=== PATIENT | male | born 1945 | race Caucasian/White ===

== ENCOUNTER 2017-09-07 13:38 | Inpatient (IN) | payer OTHER ==
[~2017-09-07] VITALS: Ht 185.4 cm; Wt 79.4 kg
--- NOTE | 2017-09-07 15:55 | NUR ---
Pre-admission Note: Client is seen in intake at this time. He verbalizes "I'm here to get off Hydrocodone." He is alert and oriented x 4. Denies S/I or H/I. No AV hallucinations noted. He is noted to have hyperverbal speech and rubbing his left knee. He is noted to be restless during the pre-admission process. He is able go provide consent and verbalize good understanding of the admission process. He reports NKA. Denies seizure history. He reports past medical hx of left TKR 5 weeks ago, C4-C6 surgery, L4-L5 fusion, BPH and depression. VS: BP 114/62, Temp 97.3, Pulse 85, RR 19, PL 7/10 to left knee. Will continue with the admission process when patient arrives in the unit.
[2017-09-07 16:01] VITALS: BP 114/62
[2017-09-07] MEDS ORDERED: ACETAMINOPHEN 325 MG TABLET PO PRN (16:45)
[2017-09-07] MEDS ORDERED: ONDANSETRON 4 MG/2 ML VIAL IM PRN (16:45)
[2017-09-07] MEDS ORDERED: PROMETHAZINE HCL 25 MG TABLET PO PRN (16:45)
[2017-09-07] MEDS ORDERED: diphenhydrAMINE 50 MG CAPSULE PO PRN (16:45)
[2017-09-07] MEDS ORDERED: ONDANSETRON HCL 4 MG TABLET PO PRN (16:45)
[2017-09-07] MEDS ORDERED: HYDROXYZINE PAMOATE 25 MG CAPSULE PO PRN (16:45)
[2017-09-07] MEDS ORDERED: MAG HYDROX/AL HYDROX/SIMETH 30 ML LIQUID UDC PO PRN (16:45)
[2017-09-07] MEDS ORDERED: MIRALAX 17 GM POWD.PACK PO PRN (16:45)
[2017-09-07] MEDS ORDERED: ONDANSETRON ODT 4 MG TAB.RAPDIS SL PRN (16:45)
[2017-09-07] MEDS ORDERED: MAGNESIUM HYDROXIDE 30 ML LIQUID UDC PO PRN (16:45)
[2017-09-07] MEDS ORDERED: BUPRENORPHINE HCL 2 MG TAB.SUBL SL PRN (16:45)
[2017-09-07] MEDS ORDERED: LOPERAMIDE HCL 2 MG CAPSULE PO PRN (16:45)
[2017-09-07] MEDS ORDERED: DICYCLOMINE HCL 20 MG TABLET PO PRN (16:45)
--- NOTE | 2017-09-07 16:45 | NUR ---
Admission Note: Admitted a 72 year old male for opiate withdrawal under the care of Dr. Dc Betts. He is alert and oriented x 4. Respirations even and unlabored. No SOB noted. Skin warm and moist to touch. Body search done by male CUTTING MACHINE TENDER. No contraband was found. Skin check done. No skin breakdown noted. Noted with scars to left knee and to his neck from surgery few years ago. Abdomen soft and non-distended. BS (+) in all 4 quadrants. No complains of N/V/D or constipation noted. Bladder non-distended. Voids independently. Ambulatory ad bailey with steady gait. He reports past medical hx of left knee TKR 5 weeks ago, BPH, Depression, C4-C6 surgery, L4 to S1 fusion. He denies having a PCP at this time. He denies having any seizure history. He states that his longest period of sobriety was 20 years ago back in 1996. He does not appear to be intoxicated at this time. COWS 16 upon admission. Substance Use: 1. Hydrocodone - Orally takes 4 tabs of "white oval tablets" daily x 5 weeks. Last use was on 09/05/2017 at 0400, 4 tabs. 2. Vyvanse - Orally takes 50 mg daily x 1 year. Last use was on 09/05/2017 at 0400. 3. Adderall - Orally takes 10 mg TID x 1 year. Last use was on 09/05/2017 at 0400 4. ETOH - sporadically drinks 3 beers on a non daily intermittent use. Last drink was 4 weeks ago. Treatment History: 1. [place] x [address] Betts made aware of patient's arrival in the unit and current medical condition. EKG/CXR ordered and completed. UDS to be provided. Patient was placed on room restriction until he is able to provide urine for UDS. Educated patient on the unit's policy and protocol. He verbalized good understanding. Will continue to monitor throughout the shift. Addendum: 09/07/17 at 1812 by DENVER BRIAN LVN Additional body check note: Left knee noted with swelling and warm to touch upon admission.
[2017-09-07] MEDS ORDERED: CARB1DRO25 OP (17:05)
[2017-09-07] MEDS ORDERED: PROP1INH NS (17:06)
[2017-09-07] MEDS ORDERED: LIFI1DRO OP (17:07)
[2017-09-07] MEDS ORDERED: NEO/3.5O EACHEYE (17:08)
[2017-09-07] MEDS ORDERED: DICL100G16 TP (17:10)
[2017-09-07] MEDS ORDERED: ANESTHETIC (17:14)
[2017-09-07] MEDS ORDERED: HYDR-3980 PO (17:16)
[2017-09-07] MEDS ORDERED: LISD50CA2 PO (17:20)
[2017-09-07] MEDS ORDERED: AMPH10CA3 PO (17:21)
[2017-09-07] MEDS: IBUPROFEN 600 MG TABLET PO PRN (17:28)
--- NOTE | 2017-09-07 17:28 | NUR ---
Motrin 600 mg PO given: Patient noted with complain of 7/10 left knee pain. Area noted to be swollen and warm to touch. Ice packs provided. Medicated patient with Motrin 600 mg PO as ordered. Will monitor for effectiveness.
[2017-09-07 17:35] LABS: BASOPHILS # (AUTO) 0.1 K/uL (0.0-8.0); BASOPHILS % (AUTO) 0.9 % (0.0-2.0); EOSINOPHILS # (AUTO) 0.2 K/uL (0.0-0.7); HEMATOCRIT 35.4 % (36.7-47.1); HEMOGLOBIN 11.5 g/dL (12.5-16.3); LYMPHOCYTES # (AUTO) 2.3 K/uL (20.0-40.0); LYMPHOCYTES % (AUTO) 29.5 % (20.5-51.5); MEAN CORPUSCULAR HEMOGLOBIN 26.9 uug (23.8-33.4); MEAN CORPUSCULAR HGB CONC 33 g/dL (32.5-36.3); MEAN CORPUSCULAR VOLUME 82.6 fL (73.0-96.2); MONOCYTES # (AUTO) 0.5 K/uL (2.0-10.0); MONOCYTES % (AUTO) 6.6 % (0.0-11.0); NEUTROPHILS # (AUTO) 4.7 K/uL (1.8-8.9); PLATELET COUNT (AUTO) 375 K/uL (152-348); RED BLOOD CELL COUNT(AUTO) 4.28 MIL/uL (4.06-5.63); WHITE BLOOD COUNT (AUTO) 7.8 K/uL (3.6-10.2)
[2017-09-07 17:37] LABS: ALANINE AMINOTRANSFERASE 26 U/L (16-63); ALKALINE PHOSPHATASE 95 U/L (50-136); ASPARTATE AMINOTRANSFERASE 17 U/L (15-37); BILIRUBIN,TOTAL 0.5 mg/dL (0.2-1.0); CARBON DIOXIDE 29 mmol/L (21-32); CHLORIDE 105 mmol/L (98-107); CREATININE 1.1 mg/dL (0.6-1.3); GLUCOSE 109 mg/dL (74-106); MAGNESIUM 2.1 mg/dL (1.8-2.4); POTASSIUM 3.9 mmol/L (3.5-5.1); TOTAL PROTEIN, SERUM 6.9 g/dL (6.4-8.2); UREA NITROGEN, BLOOD 21 mg/dL (7-18)
[2017-09-07 18:25] LABS: ETHANOL < 3 MG/DL (0-0)
--- NOTE | 2017-09-07 18:35 | NUR ---
Subutex 4 mg SL given: Patient was able to provide urine for UDS. COWS 16, presented with anxiety/agitation, restless legs, and muscle aches. Medicated patient with Subutex 4 mg SL as ordered. Will monitor for effectiveness.
[2017-09-07] MEDS ORDERED: TAMS-3 PO (18:42)
--- NOTE | 2017-09-07 18:45 | NUR ---
Communication: Labs Lab reviewed. Patient's NT-Pro-B Natriuret Pep is at 140H. Notified Dr. Betts.
--- NOTE | 2017-09-07 19:00 | NUR ---
End of Shift Notes: Patient is on PRN Subutex at this time to manage withdrawal symptoms related to opiates. VS monitored closely. No significant abnormalities noted. Withdrawal symptoms were closely monitored. Initial COWS 16, patient presented with restlessness, tremors, anxiety/agitation and muscle aches. Medicated patient with Subutex 4 mg SL as ordered at 1835. Results pending. Compliant with care and treatment. Consumed 100% of his dinner. All needs met and attended.
[2017-09-07 20:00] VITALS: BP 144/87
--- NOTE | 2017-09-07 20:00 | NUR ---
Start of Shift Pt awake on bed, AAOx4 and noted to be anxious and fidgety. Pt with racing thoughts and verbalized, "I'm just so anxious that I need to walk along the hallway to feel better." On PRN Subutex. Pt appears unkempt and with dark undereye circles. Left knee noted to have swelling r/t TKR on 07/10/2017, with pain=3/10. Per pt, he does not need pain meds at this time. COWS=10. Will continue to monitor.
[2017-09-07 20:30] LABS: *AMPHETAMINE, URINE POSITIVE (NEGATIVE); *BARBITURATE, URINE NEGATIVE (NEGATIVE); *CANNABINOID, URINE NEGATIVE (NEGATIVE); *COCCAINE, URINE NEGATIVE (NEGATIVE); *OPIATE, URINE NEGATIVE (NEGATIVE); *PHENCYCLIDINE SCREEN,URINE NEGATIVE (NEGATIVE)
[2017-09-07] MEDS ORDERED: TAMSULOSIN HCL 0.4 MG CAP.SR.24H PO ONE (21:15)
[2017-09-07] MEDS: CLONIDINE HCL 0.1 MG TABLET PO PRN (22:08)
--- NOTE | 2017-09-07 22:12 | NUR ---
RN note PRN Clonidine and Benadryl Pt c/o increasing anxiety and inability to sleep. Pt pacing inside the room. Administered Clonidine 0.1 mg PO PRN and Benadryl 50 mg PO PRN as ordered. Will reassess.
--- NOTE | 2017-09-07 23:15 | NUR ---
RN note reassess Pt asleep on bed, no SOB nor facial grimacing noted.
[2017-09-08] VITALS: BP 135/81
[2017-09-08 04:00] VITALS: BP 132/83
--- NOTE | 2017-09-08 07:22 | NUR ---
End of Shift Pt asleep on bed, arousable and noted to be anxious. Pt continues to have racing thoughts. On PRN Subutex. Pt appears unkempt and with dark undereye circles. Left knee noted to have swelling r/t TKR on 07/10/2017, with pain=3/10. Patient verbalized that he is looking forward to be seen by Physical Therapist today to check his left knee's mobility range. COWS=8, slept for 9 hours. Endorsed to AM shift nurse for continuity of care.
--- NOTE | 2017-09-08 07:31 | NUR ---
Start of Shift Notes: Received patient in his room. Alert and oriented x 4. Patient is a 72 year old male admitted for opiate withdrawal. Patient showered early AM. Denies AV hallucinations noted. No S/I or H/I noted. Educated patient on his current plan of care for the day and his medication regimen. Encouraged oral fluid intake and encouraged group participation to learn new skills to prevent relapse. Will continue to monitor.
[2017-09-08 08:00] VITALS: BP 116/63
--- NOTE | 2017-09-08 08:35 | NUR ---
Change of Condition: Patient yelled while inside the room "Help, I need a doctor!" Staff nurse, charge nurse immediately ran towards the patient's room. Patient was seen in a sitting position while spitting up saliva and food from his mouth. He was also pointing towards his throat. He was seen dry heaving and also stating "There is something wrong with me. I can't breathe!" VS were immediately taken. BP 164/112, Pulse 92, O2 sat 88%, RR 21. Patient denies any complains of chest pain. HOB elevated immediately. Placed patient on 15L of O2 via non-rebreather mask. Nurse notified MD and Rapid Response was called while staff nurse stayed with the patient. Patient remains alert and oriented x 4. Coherent. Speech is clear. No disorientation or confusion noted. Hand grasp strong bilaterally. No facial drooping noted. Facial features symmetrical.
--- NOTE | 2017-09-08 08:40 | NUR ---
Rapid Response: Rapid response arrived to the patient's room. At this time, patient remains alert and oriented x 4. Currently on 15L of O2 via non-rebreather mask. Patient was encouraged to remain calm as he appears anxious, restless and what appears to have a panic attack. Upon assessment of rapid response team, patient's VS were taken again. BP 135/97, Pulse 82, RR 18, O2 sat at 99% via non-rebreather mask. Lungs sounds clear bilaterally. No wheezing noted. RT titrated O2 to 5L via NC, while patient's O2 remained at 100%. Deep breathing exercises were provided. PMR encouraged. Reassurance was provided. Notified patient that he is in a safe place and that MD is well aware of his current condition. After deep breathing exercises, patient remained calm. COWS 9, however refused to take Subutex. Patient's VS remained stable. Patient was eventually titrated off O2 and is now saturating at 100% via RA. Encouraged patient to take Subutex but still refused. MD Betts made aware and orders were placed for STAT CXR, labs, and for patient to receive Ativan 2 mg PO x 1 now due to severe agitation. Orders were received by charge nurse and orders were placed.
[2017-09-08] MEDS ORDERED: LORAZEPAM 1 MG TABLET PO STA (08:52)
--- NOTE | 2017-09-08 08:59 | NUR ---
Ativan 2 mg PO x 1 given: Patient's O2 saturation at 99% via RA. Blood pressure 134/86, MD 82. Patient is restless, anxious/agitated, constantly moving his body position, dry heaving, and appears angry and upset. Ativan 2 mg PO x 1 given now for severe anxiety/agitation. Educated patient on the medication and its side effects. Will monitor for effectiveness. Patient continues to refuse Subutex 4 mg SL at this time.
[2017-09-08] MEDS ORDERED: TUBERCULIN,PURIF.PROT.DERIV. 5 TU/0.1 ML TEST ID ONE (09:00)
[2017-09-08] MEDS: MULTIVITAMINS,THERAPEUTIC TABLET PO SCH (09:00)
[2017-09-08] MEDS: DOCUSATE SODIUM 250 MG CAPSULE PO SCH (09:00)
--- NOTE | 2017-09-08 09:59 | NUR ---
COWS 9: Patient's COWS 9 at this time due to severe anxiety, elevated pulse and mild joint/bone aches. Notified MD Betts who is evaluating the patient at this time with orders to hold Subutex and DC Subutex orders. Will continue to monitor.
--- NOTE | 2017-09-08 09:59 | NUR ---
0900 meds not given/Re-assessment: Ativan 2 mg Patient appears calm at this time. Laying in bed with eyes closed. Requested to have O2 at bedside. Orders were received to have O2 PRN. Patient verbalized that he feels a little bit more better. Subutex 4 mg SL was encouraged again to keep him comfortable. But patient refuses to take the meds. Patient also refused all 0900 meds ie MVI, DSS 250, and TB test. Educated patient on the risk and benefits but patient still refused.
[2017-09-08 12:00] VITALS: BP 98/61
[2017-09-08 12:13] LABS: CARBON DIOXIDE 29 mmol/L (21-32); CHLORIDE 107 mmol/L (98-107); CREATININE 0.8 mg/dL (0.6-1.3); GLUCOSE 123 mg/dL (74-106); UREA NITROGEN, BLOOD 20 mg/dL (7-18)
[2017-09-08 12:14] LABS: BASOPHILS # (AUTO) 0.1 K/uL (0.0-8.0); BASOPHILS % (AUTO) 0.7 % (0.0-2.0); EOSINOPHILS # (AUTO) 0.1 K/uL (0.0-0.7); EOSINOPHILS % (AUTO) 1.5 % (0.0-7.0); HEMATOCRIT 33.2 % (36.7-47.1); HEMOGLOBIN 10.7 g/dL (12.5-16.3); LYMPHOCYTES # (AUTO) 1.3 K/uL (20.0-40.0); LYMPHOCYTES % (AUTO) 17.5 % (20.5-51.5); MEAN CORPUSCULAR HEMOGLOBIN 26.8 uug (23.8-33.4); MEAN CORPUSCULAR HGB CONC 32 g/dL (32.5-36.3); MEAN CORPUSCULAR VOLUME 83.1 fL (73.0-96.2); MONOCYTES # (AUTO) 0.4 K/uL (2.0-10.0); MONOCYTES % (AUTO) 4.8 % (0.0-11.0); NEUTROPHILS # (AUTO) 5.7 K/uL (1.8-8.9); NEUTROPHILS % (AUTO) 75.5 % (38.5-71.5); PLATELET COUNT (AUTO) 328 K/uL (152-348); WHITE BLOOD COUNT (AUTO) 7.6 K/uL (3.6-10.2)
[2017-09-08] MEDS ORDERED: LORAZEPAM 1 MG TABLET PO PRN (12:45)
--- NOTE | 2017-09-08 14:37 | NUR ---
Off Unit: Patient was accompanied by nurse to radiology department at this time in stable condition for 2view CXR.
--- NOTE | 2017-09-08 14:47 | NUR ---
Back to the Unit: Patient is back to unit in stable condition. 2View CXR done. Results pending.
--- NOTE | 2017-09-08 15:53 | NUR ---
Nursing Entry: Patient remains in stable condition at this time. He remains alert and oriented x 4. COWS 4. He is currently watching TV in his room. Ice packs provided to patient's left knee for pain relief with help.
[2017-09-08 16:00] VITALS: BP 118/71
[2017-09-08] MEDS: IBUPROFEN 600 MG TABLET PO PRN (17:52)
[2017-09-08] MEDS: METHOCARBAMOL 750 MG TABLET PO PRN (17:52)
--- NOTE | 2017-09-08 17:52 | NUR ---
Robaxin 750mg PO/Motrin 600 mg PO given: Patient noted with complain of 7/10 left knee pain. Ice packs applied with no help. Medicated patient with Robaxin 750 mg PO and Motrin 600 mg Po as ordered. Will monitor for effectiveness.
--- NOTE | 2017-09-08 18:52 | NUR ---
Re-assessment: Robaxin and Motrin Per patient, PRN Robaxin and Motrin was effective in reducing left knee pain. PL 08/18.
--- NOTE | 2017-09-08 18:58 | NUR ---
News orders: Bengay cream Patient requested Bengay cream for his left knee. Notified Dr. Betts. Orders obtained. Orders noted and carried out. MD is unable to enter orders at this time. was driving.
--- NOTE | 2017-09-08 19:20 | NUR ---
End of Shift Notes: Patient continues to be on PRNs at this time to manage withdrawal symptoms related to opiates. VS monitored closely. Rapid response was called in AM due to O2 desaturation. Patient is in stable condition at this time. Withdrawal symptoms were closely monitored. Initial COWS 9, due to elevated pulse, severe anxiety/agitation and muscle aches. Last COWS 4. Medicated patient with Motrin 600 mg PO and Robaxin 750 mg PO as ordered at 1752 with help after 1 hour. Subutex was discontinued per MD. Patient stayed in his room for most of the shift. All needs met and attended. Will continue to monitor closely.
--- NOTE | 2017-09-08 19:35 | NUR ---
START OF SHIFT Patient is a 72-year-old male admitted on 09/07/17 for opiate withdrawal, concurrent use of Vyvanse and adderall. Patient is currently not on any taper, with PRN medications available for symptoms of withdrawal; tolerating well. Last COWS was 4 per day nurse. Patient is 5 weeks post TKR of his left knee, complaining of mild to moderate intermittent pain. Upon assessment, patient appears anxious and worried, concerned about upcoming meds. Safety measures in place, side rails up x2, bed locked in low position, call light within reach. Will continue to monitor.
[2017-09-08 20:00] VITALS: BP 127/75
[2017-09-08] MEDS: CLONIDINE HCL 0.1 MG TABLET PO PRN (20:37)
--- NOTE | 2017-09-08 20:45 | NUR ---
PRN CLONIDINE AND TYLENOL Patient reports 4/10 pain at Left Knee despite previous PRN Robaxin and PRN Motrin. Patient was given Tylenol 650mg PO and PRN Clonidine 0.1mg for anxiety, agitation, restlessness and chills. Patient's respirations are even and unlabored, 16/min. Safety measures in place, side rails up x2, bed in lowest position, call light within reach. Will monitor for effectiveness.
--- NOTE | 2017-09-08 21:45 | NUR ---
PRN CLONIDINE AND TYLENOL REASSESSMENT Patient reports 2/10 left knee pain, and reports that he feels sleepy and will go to bed soon. PRN medications effective. Patient's respirations are even and unlabored. Safety measures in place, call light within reach. Will continue to monitor.
--- NOTE | 2017-09-09 | NUR ---
VITALS REFUSED Patient refused to be woken up for midnight vitals. Respirations even and unlabored, 16/min. Safety measures in place, side rails up x2, bed locked in lowest position, call light within reach. Will continue to monitor.
--- NOTE | 2017-09-09 | NUR ---
COWS DEFERRED COWS deferred due to patient sleeping; to be assessed and scored while patient is awake. Respirations even and unlabored, 16/min. Safety measures in place, call light within reach. Will continue to monitor.
--- NOTE | 2017-09-09 04:00 | NUR ---
VITALS REFUSED, COWS DEFERRED Patient refused 4AM vitals, COWS deferred due to patient sleeping; to be assessed while patient is awake. Respirations 16/min, even and unlabored. Safety measures in place, side rails up x2, bed locked in lowest position, call light within reach. Will continue to monitor.
--- NOTE | 2017-09-09 07:10 | NUR ---
END OF SHIFT Patient is a 72-year-old male admitted on 09/07/17 for opiate withdrawal, concurrent use of Vyvanse and adderall. No taper has been ordered for patient, only PRN medications are available for symptoms of withdrawal; patient is tolerating current med regimen well. Last COWS score was 4. Patient received PRN Clonidine and Tylenol, both effective. Patient slept for 9 hours, total intake was 547 mL, void x2, stool x0. Safety measures in place, side rails up x2, bed locked in low position, call light within reach. Will endorse to day shift.
--- NOTE | 2017-09-09 08:02 | NUR ---
START OF SHIFT NOTE Received report from night nurse, patient admitted for hydrocodone/Vyvanse/Adderall withdrawal. Patient currently not on any taper but PRN'S available for increased s/s of withdrawal. Per endorsement pt was given PRN Clonidine/Tylenol noted to be effective, last COWS-4, slept for 9 hours. Received patient in his room c/o of diarrhea. Patient noted with flat effect, anxious, agitated, Breathing normal no SOB noted. skin intact warm and dry to touch. Safety measures in place. Will cont with plan of care.
[2017-09-09 08:05] VITALS: BP 113/79
[2017-09-09] MEDS: MULTIVITAMINS,THERAPEUTIC TABLET PO SCH (08:27)
[2017-09-09] MEDS: DOCUSATE SODIUM 250 MG CAPSULE PO SCH (08:28)
--- NOTE | 2017-09-09 08:35 | NUR ---
PRN IMODIUM/VISTARIL Patient reported diarrhea x1, anxiety, agitation. PRN Imodium 4mg PO,Vistaril 25mg PO given as ordered. Will cont to monitor and reassess.
--- NOTE | 2017-09-09 09:35 | NUR ---
VISTARIL/IMODIUM REASSESSMENT Per patient medications were effective no episode of diarrhea and anxiety and agitation subsided.
[2017-09-09 11:06] LABS: HEPATITIS B SURFACE AG Negative (Negative)
[2017-09-09 12:00] VITALS: BP 136/82
[2017-09-09] MEDS ORDERED: PATIENT MAY USE OWN MED- MD OK TOP PRN (12:30)
[2017-09-09] MEDS ORDERED: PATIENT MAY USE OWN MED- MD OK NS PRN (12:30)
[2017-09-09 16:00] VITALS: BP 139/88
[2017-09-09] MEDS: FLUTICASONE PROP NASAL SPRAY 16 GM BOTTLE NS SCH (16:15)
[2017-09-09] MEDS: PATIENT MAY USE OWN MED- MD OK TOP SCH (16:22)
[2017-09-09] MEDS: METHOCARBAMOL 750 MG TABLET PO PRN (17:10)
--- NOTE | 2017-09-09 17:10 | NUR ---
PRN ROBAXIN Patient c/o of muscle spasms. PRN Robaxin 750mg PO given as ordered. Will cont to monitor and reassess.
--- NOTE | 2017-09-09 18:10 | NUR ---
ROBAXIN REASSESSMENT Per patient Robaxin was effective muscle spasms decreased.
--- NOTE | 2017-09-09 19:05 | NUR ---
Start of Shift Patient Received. Patient is in his room sleeping but easily aroused to verbal stimuli. Breathing even and non labored. Patient was placed on PRN medications for increased signs and symptoms of withdrawal. He received PRN Imodium for episodes of loose stool, PRN Vistaril for increased anxiety, and PRN Robaxin for increased muscle spasms with medications noted to be effective. Patient is set for discharge tomorrow 09/10/17. Last noted COWS 7. All needs attended to promptly. Will continue plan of care as ordered.
--- NOTE | 2017-09-09 19:07 | NUR ---
END OF SHIFT NOTE Patient presented with anxiety, agitation, diarrhea, muscle spasms. Patient was given PRN Imodium, Vistaril, Robaxin noted to be effective. patient was seen and evaluated by PT. Patient was seen by MD with new to discharge in am. Vital signs WNL. Patient mostly rested in his room. Patient able to consumed 100% of his meals. Patient remained compliant with plan of care. Safety measures in place. Patient endorsed to night nurse in stable condition.
[2017-09-09 20:27] VITALS: BP 135/85
[2017-09-09] MEDS: TAMSULOSIN HCL 0.4 MG CAP.SR.24H PO SCH (20:29)
[2017-09-09] MEDS: CLONIDINE HCL 0.1 MG TABLET PO PRN (20:29)
--- NOTE | 2017-09-09 20:30 | NUR ---
PRN Medication Administration Patient is noted verbalizing increased anxiety, noted with increased restlessness, and easily irritable. PRN Clonidine administered with routine medication. Will continue to monitor.
--- NOTE | 2017-09-09 21:30 | NUR ---
PRN Medication Reassessment Patient is noted in bed sleeping. Breathing even and non labored. No signs of restlessness or discomfort noted. Patient received PRN Clonidine with medication noted to be effective. Will continue to monitor.
[2017-09-10 00:22] VITALS: BP 123/77
[2017-09-10 04:08] VITALS: BP 125/79
[2017-09-10] MEDS: LOPERAMIDE HCL 2 MG CAPSULE PO PRN ×2 (06:20→09:28)
--- NOTE | 2017-09-10 06:20 | NUR ---
PRN Medication Administration Patient is noted awake and is noted with episode of loose stool. PRN Imodium 2mg administered. Will continue to monitor.
--- NOTE | 2017-09-10 07:19 | NUR ---
End of Shift Patient is noted awake, alert and verbally responsive. Breathing even and non labored. Patient is set for discharge today 09/10/17. Patient received PRN Clonidine for increased signs and symptoms of anxiety and agitation with medication noted to be effective. Patient also received PRN Imodium for episode of loose stool with medication noted to be effective. Will endorse to continue to monitor for loose bowl. Last noted COWS 7. All needs attended to promptly. Will endorse to continue plan of care as ordered.
[2017-09-10 08:00] VITALS: BP 136/82
--- NOTE | 2017-09-10 08:20 | NUR ---
START OF SHIFT: RECEIVED PT A/O X 4. HE PRESENTS WITH GUARDED AFFECT. HE IS CLEAN AND WELL KEMPT. HE IS FIDGETY AND APPEARS AGITATED. HE REPORTS HAVING DIARRHEA AND BACK AND KNEE PAIN 4/10 ON SCALE. COWS 6. PRNS AVAILABLE FOR INCREASED S/S OF W/D. PRN IMODIUM ADMINISTERED TO RELIEVE DIARRHEA. HOT PACK AND COLD PACK GIVEN FOR KNEE AND BACK PAIN.COWS 7 NO SUBUTEX ADMINISTERED. PT IS SCHEDULED FOR DISCHARGE THIS AFTERNOON. WILL CONTINUE TO MONITOR AND PROVIDE SAFE AND SUPPORTIVE ENVIRONMENT.
[2017-09-10] MEDS: DOCUSATE SODIUM 250 MG CAPSULE PO SCH (09:00)
[2017-09-10] MEDS: MULTIVITAMINS,THERAPEUTIC TABLET PO SCH (09:28)
[2017-09-10] MEDS: FLUTICASONE PROP NASAL SPRAY 16 GM BOTTLE NS SCH ×2 (09:28→17:00)
[2017-09-10] MEDS: METHYL SALICYLATE/MENTHOL CREAM 28 GM TUBE TOP PRN (09:30)
[2017-09-10] MEDS: PATIENT MAY USE OWN MED- MD OK EACHEYE SCH ×3 (09:35→09:36)
[2017-09-10] MEDS: PATIENT MAY USE OWN MED- MD OK TOP SCH ×2 (09:36→17:00)
--- NOTE | 2017-09-10 10:00 | NUR ---
Therapist prompted client about group times. Client reports he will not be attending groups today due to knee pain.
--- NOTE | 2017-09-10 11:00 | NUR ---
discharge postponed until 09/11/17 per md.
[2017-09-10 12:00] VITALS: BP 136/79
[2017-09-10 16:00] VITALS: BP 123/64
[2017-09-10] MEDS: METHOCARBAMOL 750 MG TABLET PO PRN (18:31)
[2017-09-10] MEDS: IBUPROFEN 600 MG TABLET PO PRN (18:31)
--- NOTE | 2017-09-10 19:00 | NUR ---
Start of Shift Patient Received. Patient is noted in bed sleeping but easily aroused to verbal stimuli. Breathing even and non labored. Per endorsement, patients discharge is now pending. Patient was medicated for episodes of loose stool and was given PRN Imodium with medication noted to be effective. Current orders for stool collection to R/A C-Diff. Patient also received PRN Robaxin and Motrin for increased body aches with medications noted to be effective. Discharge is currently pending for 09/11/17. Last noted COWS 9. All needs attended to promptly. Will continue plan of care as ordered.
--- NOTE | 2017-09-10 19:33 | NUR ---
END OF SHIFT: PT STAYED IN BED AND ISOLATED IN ROOM MOST OF SHIFT. HE WAS GIVEN MOTRIN AND ROBAXIN FOR R KNEE PAIN AND LOWER BACK PAIN 4/10 ON PAIN SCALE WHICH WAS MILDLY EFFECTIVE. LAST COWS 9. HIS AFFECT IS GUARDED HIS MOOD DEPRESSED. HE DENIES S/I AND H/I. DISCHARGE PLANNING IN PROGRESS FOR 09/11/17. WILL PASS REPORT TO ONCOMING NIGHT NURSE.
[2017-09-10 20:18] VITALS: BP 107/72
[2017-09-10] MEDS: TAMSULOSIN HCL 0.4 MG CAP.SR.24H PO SCH (20:21)
[2017-09-11 00:20] VITALS: BP 103/63
[2017-09-11] MEDS ORDERED: METH-406 PO (00:51)
[2017-09-11 04:08] VITALS: BP 127/86
--- NOTE | 2017-09-11 07:20 | NUR ---
End of Shift Patient is noted awake and alert x3. Breathing even and non labored. Patients discharge is now pending. Patient is noted to be flat, blunt, and isolative to room. No episodes of loose bowl noted. Patient noted to sleep in intervals with no PRN Medications administered. Lat noted COWS 8. All needs attended to promptly. Will endorse to continue plan of care as ordered.
--- NOTE | 2017-09-11 07:25 | NUR ---
Start of Shift Quality Control Assessor received report on 72 year old male admitted to [facility] on 09/07/17 for medically supervised withdrawal from Hydrocodone, Vyvanse and Adderall. Pt endorses NKA, full code and regular diet. PMH to include depression, BPH, left knee surgery 5 weeks prior to admission and a C4-C6 surgery. Pt slept well for 8 hours last evening. Last COWS 8, recorded at 2000 per NOC report. Pts discharge pending, possibly for today. Quality Control Assessor encounters pt in his room resting with eyes closed. Rise and fall of chest noted, with even and unlabored respirations. Bed in low position with wheels locked and side rails up x2. Will continue to monitor, support and encourage according to plan of care.
[2017-09-11 08:45] VITALS: BP 127/70
[2017-09-11] MEDS: DOCUSATE SODIUM 250 MG CAPSULE PO SCH ×2 (09:59→10:09)
[2017-09-11] MEDS: MULTIVITAMINS,THERAPEUTIC TABLET PO SCH (10:09)
[2017-09-11] MEDS: FLUTICASONE PROP NASAL SPRAY 16 GM BOTTLE NS SCH (10:39)
[2017-09-11] MEDS: PATIENT MAY USE OWN MED- MD OK EACHEYE SCH ×3 (10:39→10:40)
[2017-09-11] MEDS: METHYL SALICYLATE/MENTHOL CREAM 28 GM TUBE TOP PRN (10:42)
[2017-09-11] MEDS: PATIENT MAY USE OWN MED- MD OK TOP SCH (10:43)
--- NOTE | 2017-09-11 12:43 | NUR ---
Discharge Pt refused all education and was pre-occupied with discharge diagnosis. Pt was irritable, demanding, argumentative and abrasive. Pt had many complaints and was anxious to discharge. Pt was provided with all discharge belongings including personal effects and home medication. Pt denies HI/SI or A/VH or any other associated psychiatric symptoms. Pt exited the unit per ambulation to a private car for discharge to a RTC.
== END 2017-09-11 12:43 | DRG 895 ==
LOC: SRC 15:20
PROVIDERS: ADMIT Internal Medicine; ATTEND Internal Medicine
PROC: HZ2ZZZZ Detoxification Services for Substance Abuse Treatment (ICD-10-PCS; principal; 2017-09-07)
PROC: HZ41ZZZ Group Counseling for Substance Abuse Treatment, Behavioral (ICD-10-PCS; 2017-09-08)
PROC: HZ31ZZZ Individual Counseling for Substance Abuse Treatment, Behavioral (ICD-10-PCS; 2017-09-10)
DX: F11.23 Opioid dependence with withdrawal (principal); R06.09 Other forms of dyspnea; F32.9 Major depressive disorder, single episode, unspecified; F41.9 Anxiety disorder, unspecified; F15.23 Other stimulant dependence with withdrawal; F98.8 Other specified behavioral and emotional disorders with onset usually occurring in childhood and adolescence; Z96.652 Presence of left artificial knee joint; Z98.1 Arthrodesis status; M50.30 Other cervical disc degeneration, unspecified cervical region; M51.36 Other intervertebral disc degeneration, lumbar region; M17.0 Bilateral primary osteoarthritis of knee; Z81.1 Family history of alcohol abuse and dependence; R91.1 Solitary pulmonary nodule
CPT/HCPCS: 36415; 70030-TC; 71045; 71046; 80307; 80324; 83735; 85025; 86580; 86592; 86705; 86803; 87340; 87806; 93005; 93307; 97110; 97116; 97530; A4663; G0480; J3535; Q0162; Q0163

== ENCOUNTER 2017-09-08 14:00 | Outpatient (CLI) | payer SELFPAY ==
[~2017-09-08 14:00] MED LIST: AMPH10CA3 PO; ANESTHETIC; CARB1DRO25 OP; DICL100G16 TP; HYDR-3980 PO; LIFI1DRO OP; LISD50CA2 PO; NEO/3.5O EACHEYE; PROP1INH NS; TAMS-3 PO
== END 2017-09-08 23:59 | disposition home or self-care (01) ==
LOC: XRAY 14:00
PROVIDERS: ATTEND Internal Medicine
DX: R91.1 Solitary pulmonary nodule (principal); M47.894 Other spondylosis, thoracic region
CPT/HCPCS: 71046